=== PATIENT | male | born 1960 | race Asian ===

== ENCOUNTER → 2017-09-10 | Outpatient (CLI) | payer OTHER ==
[~2017-09-10] MED LIST: CETI10 PO
--- NOTE | 2017-09-13 10:04 | RSPPFT ---
DATE OF PROCEDURE: 09/10/17 COMMENTS: Spirometry shows FVC of 3.1 at 87% of predicted, FEV1 of 2.5 at 88%, FEV1/FVC ratio is normal. Flow is normal at FEF 25, FEF 50, FEF 75 and FEF 25-75. There is a paradoxical response to acutely inhaled bronchodilator treatment. Lung volumes show residual volume is increased. TLC is normal. Diffusion capacity is normal. Flow volume loop indicates a normal pattern. IMPRESSION: 1. Normal spirometry. 2. Paradoxical response to bronchodilator treatment. 3. Lung volumes are increased. 4. Normal diffusion capacity.
== END ==
LOC: PHRSP 08:29
PROVIDERS: ATTEND Specialist
DX: R06.00 Dyspnea, unspecified (principal)
CPT/HCPCS: 94060; 94726; 94729